=== PATIENT | male | born 1995 | race Caucasian/White ===

== ENCOUNTER 2017-07-01 12:07 | Inpatient (IN) | payer MEDICAID ==
[~2017-07-01] VITALS: Ht 175.3 cm; Wt 91.5 kg
[2017-07-01] MEDS ORDERED: HALOPERIDOL LACTATE 5 MG/ML VIAL ONE (12:26)
[2017-07-01] MEDS ORDERED: DiphenhydrAMINE HCL 50 MG/ML VIAL ONE (12:26)
[2017-07-01] MEDS ORDERED: LORazepam 2 MG/ML VIAL ONE (12:26)
[2017-07-01] MEDS ORDERED: HALOPERIDOL LACTATE 5 MG/ML VIAL IM ONE (12:30)
[2017-07-01] MEDS ORDERED: DiphenhydrAMINE HCL 50 MG/ML VIAL IM ONE (12:30)
[2017-07-01] MEDS ORDERED: LORazepam 2 MG/ML VIAL IM ONE (12:30)
[2017-07-01 13:15] VITALS: BP 107/62
[2017-07-01] MEDS ORDERED: CITA20TA9 PO (13:49)
[2017-07-01] MEDS ORDERED: TRET20CR TP (13:49)
[2017-07-01] MEDS ORDERED: ARIP10TA8 PO (13:49)
[2017-07-01] MEDS ORDERED: MELA5POW MC (13:49)
[2017-07-01] MEDS ORDERED: MIRALAX PO (13:49)
[2017-07-01] MEDS ORDERED: DIVA500T35 PO (13:49)
[2017-07-01] MEDS ORDERED: CLIN50GE2 TP (13:49)
[2017-07-01] MEDS ORDERED: TRAZ150 PO (13:49)
[2017-07-01] MEDS ORDERED: OXCA300T PO (13:49)
[2017-07-01] MEDS ORDERED: CITA10TA68 PO (13:49)
[2017-07-01] MEDS ORDERED: TRIC1BAR TP (13:49)
[2017-07-01] MEDS ORDERED: [UNRECOGNIZED DRUG - CODE] PO (13:49)
[2017-07-01] MEDS ORDERED: PROP20 PO (13:49)
[2017-07-01] MEDS ORDERED: MELA5TAB3 PO (14:41)
[2017-07-01] MEDS ORDERED: INFLUENZA VIRUS VACCINE QVS 2017-18 (3YR+)/PF 60 MCG/0.5 ML SYRINGE IM ONE (14:45)
[2017-07-02 00:21] VITALS: BP 133/85
[2017-07-02] MEDS: HALOPERIDOL 5 MG TABLET PO PRN ×2 (00:31→07:57)
[2017-07-02] MEDS: LORazepam 2 MG TABLET PO PRN ×2 (00:31→07:57)
[2017-07-02] MEDS: ZOLPIDEM TARTRATE 10 MG TABLET PO PRN (00:31)
[2017-07-02 07:43] LABS: BASOPHILS # (AUTO) 0.07 K/uL (0.00-0.20); BASOPHILS % (AUTO) 1.2 % (0.0-2.0); EOSINOPHILS # (AUTO) 0.24 K/uL (0.00-0.70); EOSINOPHILS % (AUTO) 3.73 % (1.0-6.0); HEMATOCRIT 42.8 % (41-53); HEMOGLOBIN 14.3 g/dL (13.5-17.5); LYMPHOCYTES # (AUTO) 2.4 K/uL (1.0-4.8); LYMPHOCYTES % (AUTO) 37.3 % (22.0-44.0); MEAN CORPUSCULAR HEMOGLOBIN 28.6 pg (26.0-34.0); MEAN CORPUSCULAR HGB CONC 33.4 G/dL (31.0-37.0); MEAN CORPUSCULAR VOLUME 86 fL (80-100); MONOCYTES # (AUTO) 0.5 K/uL (0.1-1.0); MONOCYTES % (AUTO) 7.7 % (2.0-9.0); NEUTROPHILS # (AUTO) 3.2 K/uL (1.8-7.7); NEUTROPHILS % (AUTO) 50.2 % (40.0-70.0); PLATELET COUNT (AUTO) 236 K/uL (150-450); RED BLOOD CELL COUNT(AUTO) 4.99 MIL/uL (4.50-5.90); RED CELL DISTRIBUTION WIDTH 13.6 % (11.5-14.5)
[2017-07-02 08:26] LABS: ALANINE AMINOTRANSFERASE 20 U/L (12-78); ALBUMIN 3.7 g/dL (3.4-5.0); ALKALINE PHOSPHATASE 77 U/L (46-116); ANION GAP 5 mmol/L (8-16); ASPARTATE AMINOTRANSFERASE 35 U/L (15-37); BILIRUBIN,TOTAL 0.3 mg/dL (0.1-1.0); CALCIUM, TOTAL 8.9 mg/dL (8.8-10.5); CARBON DIOXIDE 31 mmol/L (22-29); CHLORIDE 95 mmol/L (98-107); CHOL/HDL RATIO 3.2 (4.2-7.3); CHOLESTEROL 148 mg/dL (131-200); CREATININE 0.82 mg/dL (0.60-1.30); FREE T4 (FREE THYROXINE) 0.68 ng/dL (0.76-1.46); GLOMERULAR FILTR. RATE CALC > 60 mL/min (>60); GLUCOSE,RANDOM 83 mg/dL (70-110); HDL CHOLESTEROL 46 mg/dL (40-60); LDL CHOL (CALC.) 83 mg/dL (0-130); SODIUM SERUM 131 mmol/L (136-145); TOTAL PROTEIN, SERUM 7.2 g/dL (6.4-8.2); TRIGLYCERIDES 97 mg/dL (15-150); UREA NITROGEN, BLOOD 13 mg/dL (7-18)
[2017-07-02 08:28] LABS: HEMOGLOBIN A1C 5.2 % (4.5-6.2)
[2017-07-02 10:12] VITALS: BP 122/79
[2017-07-02] MEDS: OXcarbazepine 300 MG TABLET PO SCH (13:19)
[2017-07-02] MEDS: DIVALPROEX SODIUM 500 MG DR TABLET PO SCH (13:19)
[2017-07-02] MEDS: ARIPiprazole 15 MG TABLET PO SCH (13:19)
[2017-07-02] MEDS: PROPRANOLOL HCL 20 MG TABLET PO SCH (17:05)
[2017-07-02 17:06] VITALS: BP 99/60
[2017-07-02] MEDS: MELATONIN 3 MG TABLET PO SCH (20:24)
[2017-07-02] MEDS: TraZODone HCL 150 MG TABLET PO SCH (20:25)
[2017-07-02 20:30] VITALS: BP 107/68
[2017-07-02] MEDS ORDERED: MELATONIN 3 MG TABLET PO SCH (21:00)
[2017-07-03] MEDS: HALOPERIDOL 5 MG TABLET PO PRN ×2 (02:56→12:36)
[2017-07-03] MEDS: ZOLPIDEM TARTRATE 10 MG TABLET PO PRN (02:56)
[2017-07-03] MEDS: LORazepam 2 MG TABLET PO PRN ×2 (02:56→12:36)
[2017-07-03 05:55] VITALS: BP 105/70
[2017-07-03] MEDS: OXcarbazepine 300 MG TABLET PO SCH (09:42)
[2017-07-03] MEDS: ARIPiprazole 15 MG TABLET PO SCH (09:42)
[2017-07-03] MEDS: PROPRANOLOL HCL 20 MG TABLET PO SCH (09:42)
[2017-07-03] MEDS: DIVALPROEX SODIUM 500 MG DR TABLET PO SCH (09:42)
[2017-07-03] MEDS: SODIUM CHLORIDE 1 GM TABLET PO SCH (12:16)
[2017-07-03 12:37] VITALS: BP 115/77
[2017-07-03 16:50] VITALS: BP 112/69
[2017-07-03] MEDS: TraZODone HCL 150 MG TABLET PO SCH (20:14)
[2017-07-03] MEDS: MELATONIN 3 MG TABLET PO SCH (20:14)
[2017-07-04 05:59] VITALS: BP 120/74
[2017-07-04] MEDS: HALOPERIDOL 5 MG TABLET PO PRN ×3 (06:07→17:07)
[2017-07-04] MEDS: LORazepam 2 MG TABLET PO PRN ×3 (06:07→17:07)
[2017-07-04 08:11] VITALS: BP 110/71
[2017-07-04 08:19] LABS: ANION GAP 8 mmol/L (8-16); CALCIUM, TOTAL 9.1 mg/dL (8.8-10.5); CARBON DIOXIDE 29 mmol/L (22-29); CHLORIDE 104 mmol/L (98-107); CREATININE 0.69 mg/dL (0.60-1.30); GLOMERULAR FILTR. RATE CALC > 60 mL/min (>60); GLUCOSE,RANDOM 95 mg/dL (70-110); POTASSIUM 4.2 mmol/L (3.5-5.1); SODIUM SERUM 141 mmol/L (136-145); UREA NITROGEN, BLOOD 10 mg/dL (7-18)
[2017-07-04] MEDS: OXcarbazepine 300 MG TABLET PO SCH (09:04)
[2017-07-04] MEDS: ARIPiprazole 15 MG TABLET PO SCH (09:04)
[2017-07-04] MEDS: SODIUM CHLORIDE 1 GM TABLET PO SCH (09:05)
[2017-07-04] MEDS: DIVALPROEX SODIUM 500 MG DR TABLET PO SCH (09:05)
[2017-07-04] MEDS: PROPRANOLOL HCL 20 MG TABLET PO SCH (09:07)
[2017-07-04 16:36] VITALS: BP 109/69
[2017-07-04] MEDS: TraZODone HCL 150 MG TABLET PO SCH (20:35)
[2017-07-04] MEDS: MELATONIN 3 MG TABLET PO SCH (20:36)
[2017-07-05 05:25] VITALS: BP 114/69
[2017-07-05] MEDS: LORazepam 2 MG TABLET PO PRN ×2 (05:58→08:45)
[2017-07-05] MEDS: HALOPERIDOL 5 MG TABLET PO PRN ×2 (05:59→08:45)
[2017-07-05 08:10] VITALS: BP 126/70
[2017-07-05] MEDS: ARIPiprazole 15 MG TABLET PO SCH (08:44)
[2017-07-05] MEDS: SODIUM CHLORIDE 1 GM TABLET PO SCH (08:44)
[2017-07-05] MEDS: PROPRANOLOL HCL 20 MG TABLET PO SCH (08:44)
[2017-07-05] MEDS: DIVALPROEX SODIUM 500 MG DR TABLET PO SCH (08:44)
[2017-07-05] MEDS: OXcarbazepine 300 MG TABLET PO SCH (08:45)
[2017-07-05] MEDS ORDERED: NACL1 PO (12:24)
== END 2017-07-05 14:24 | disposition home or self-care (01) | DRG 750 ==
LOC: B3A 12:26
PROVIDERS: ADMIT Psychiatry & Neurology Child & Adolescent Psychiatry; ATTEND Psychiatry & Neurology Child & Adolescent Psychiatry
DX: F25.0 Schizoaffective disorder, bipolar type (principal); Z91.19 Patient's noncompliance with other medical treatment and regimen; F84.0 Autistic disorder
CPT/HCPCS: 83036; 84436; 84439; 90471; J1200; J1630; J2060